=== PATIENT | male | born 1945 | race Caucasian/White ===

== ENCOUNTER 2021-03-22 05:02 | Emergency (ER) | payer MEDICARE, OTHER ==
[2021-03-22 06:13] LABS: BASOPHIL 1.6 % (0-2); EOSINOPHIL 3.1 % (0-7); HCT 46.1 % (42.0-52.0); HGB 15.4 g/dl (13.2-18.0); LYMPHOCYTE 20.7 % (15-48); MCH 31.6 pg (25.0-31.0); MCHC 33.4 g/dL (32.0-36.0); MCV 94.7 fL (78.0-100.0); MONOCYTE 10.1 % (0-12); MPV 10.3 fL (6.0-9.5); NEUTROPHIL 64.1 % (41-80); NRBC 0; PLT 257 K/uL (150-400); RBC 4.87 M/uL (4.70-6.00); WBC 10.7 K/uL (4.0-10.5)
[2021-03-22 06:27] LABS: ALBUMIN 3.2 g/dL (3.4-5.0); BILIRUBIN - TOTAL 0.5 mg/dL (0.2-1.0); BUN/CREAT RATIO (CALC) 14.3 RATIO; C-REACTIVE PROTEIN 2.3 mg/dL (<=0.90); CREATININE 0.98 mg/dL (0.67-1.17); GLOBULIN (CALCULATION) 3.7 g/dL; POTASSIUM 3.7 mmol/L (3.5-5.1); TOTAL PROTEIN 6.9 g/dL (6.4-8.2); URIC ACID 5.1 mg/dL (3.5-7.2)
[2021-03-22] MEDS ORDERED: MEDROL 4MG DOSEP4 MG PO (07:42)
== END 2021-03-22 08:00 | disposition home or self-care (01) ==
LOC: FER 05:02
PROVIDERS: Emergency Medicine Emergency Medical Services
DX: M25.532 Pain in left wrist (principal); M79.642 Pain in left hand; I10 Essential (primary) hypertension; F17.210 Nicotine dependence, cigarettes, uncomplicated; Z88.5 Allergy status to narcotic agent
CPT/HCPCS: 36415; 73110; 80053; 84550; 85025; 85379; 86140; J1885